=== PATIENT | male | born 1995 | race African-American/Black ===

== ENCOUNTER 2018-08-05 18:56 | Emergency (ER) | payer OTHER ==
[~2018-08-05] VITALS: Ht 185.4 cm; Wt 86.2 kg
[2018-08-05] MEDS ORDERED: AMOXICILLIN 50500 MG PO (19:56)
[2018-08-05] MEDS ORDERED: PAROEX473 ML MUCOUS MEM (19:56)
[2018-08-05 20:41] VITALS: BP 136/78
== END 2018-08-05 20:42 | disposition home or self-care (01) ==
LOC: M.ERS 18:56
DX: J02.9 Acute pharyngitis, unspecified (principal); K06.8 Other specified disorders of gingiva and edentulous alveolar ridge